=== PATIENT | male | born 1960 | race African-American/Black ===

== ENCOUNTER 2017-09-25 11:48 | Inpatient (IN) ==
[2017-09-25] MEDS ORDERED: methylPREDNISolone SOD SUC 125 MG/2 ML VIAL IV STA (12:23)
[2017-09-25] MEDS ORDERED: cefTRIAXone 1,000 MG in SODIUM CHLORIDE 0.9% 100 ML IV STA (12:23)
[2017-09-25] MEDS ORDERED: ONDANSETRON 4 MG/2 ML VIAL IV STA (12:23)
[2017-09-25] MEDS ORDERED: SODIUM CHLORIDE 0.9% 500 ML IV STA (12:23)
[2017-09-25] MEDS ORDERED: ALBUTEROL NEB SOLN 5 MG/ML 20 ML/BOTTLE RESP TX SCH (12:30)
[2017-09-25 12:38] LABS: Basophils # 0.1 10*3/uL (0.0-0.2); Basophils % 0.6 % (0.0-0.8); Hematocrit 36.8 VOL% (42.0-52.0); Hemoglobin 13.1 GM/DL (14.0-18.0); Immature Granulocytes % 1.3 %; Immature Granulocytes Absolute 0.18 #; Lymphocytes # 1.2 10*3/uL (1.4-4.0); Lymphocytes % 8.1 % (21.2-54.2); Mean Corpuscular HGB Conc 35.6 GM/DL (32-36); Mean Corpuscular Hemoglobin 34 PG (27-34); Mean Corpuscular Volume 94.6 FL (87-102); Monocytes # 1.1 10*3/uL (0.11-0.8); Monocytes % 7.6 % (1.7-12.7); Neutrophils # 11.9 10*3/uL (1.4-7.4); Neutrophils % 82.4 % (38.7-73.9); Platelet Count 245 T/CUMM (130-400); Red Blood Count 3.89 MC/CUMM (3.8-5.5); Red Cell Distribution Width 12.9 % (9.3-17.3); White Blood Count 14.4 T/CUMM (4-12)
[2017-09-25 12:47] LABS: ABG Base Excess 3.4 MMOL/L (-2.5-2.5); ABG HCO3 27.3 MMOL/L (20-26); ABG Oxygen Saturation 93.3 % (95-100); ABG PCO2 35.5 MM HG (35-48); ABG PH 7.483 (7.35-7.45); ABG PO2 65.5 MM HG (80-95); ABG TCO2 23.3 MMOL/L (23-27)
[2017-09-25] MEDS ORDERED: cefTRIAXone 1,000 MG VIAL ONE (12:48)
[2017-09-25] MEDS ORDERED: ONDANSETRON 4 MG/2 ML VIAL ONE ×2 (12:48→12:49)
[2017-09-25] MEDS ORDERED: methylPREDNISolone SOD SUC 125 MG/2 ML VIAL ONE (12:48)
[2017-09-25 12:49] LABS: INR 0.9; PT Patient Result 9.8 SECS
[2017-09-25 13:07] LABS: Band Neutrophils 5 % (0-10); Hypochromasia 2+; Lymphocytes 11 % (20-55); Platelet Estimate Adequate; Segmented Neutrophils 78 % (50-85); Total Cells Counted 100
[2017-09-25 13:13] LABS: Alanine Aminotransferase 27 U/L (16-61); Albumin 2.3 G/DL (3.4-5.0); Alkaline Phosphatase 85 U/L (45-117); Amylase 84 U/L (25-115); Aspartate Amino Transferase 30 U/L (0-37); Blood Urea Nitrogen 15 MG/DL (7-18); Calcium 8.5 MG/DL (8.5-10.1); Glucose 171 MG/DL (74-106); Osmolality,Calculated 272.2 MOS/KG (273-304); Potassium 3.1 MMOL/L (3.5-5.1); Sodium 134 MMOL/L (136-145); Total Protein 6.7 G/DL (6.4-8.3); Troponin I Only < 0.015 NG/ML (0.00-0.045)
[2017-09-25 13:18] LABS: Apearance,Urine Slightly Hazy (Clear); Bilirubin,Urine Negative (Negative); Blood, Urine Moderate mg/dL (Negative); Glucose,Urine (UA) Negative (Negative); Ketones,Urine Negative (Negative); Mucus,Urine Occasional /LPF (Occasional); Nitrite,Urine Negative (Negative); Protein,Urine 100 MG/DL; RBC,Urine <1 /HPF (0-4); Urine Color Yellow (Yellow); Urine Specific Gravity 1.013 (1.001-1.035); WBC,Urine 1 /HPF (0-6)
[2017-09-25 13:51] LABS: Barbiturates Screen,Urine Negative (Negative); Benzodiazepines Screen,Urine Negative (Negative); Cannabinoid Screen,Urine Positive (Negative); Opiate Screen,Urine Negative (Negative); Phencyclidine Screen,Urine Negative (Negative)
[2017-09-25 14:57] LABS: HIV Antigen/Antibody Result Nonreactive (Nonreactive); Hepatitis A Ab IgM Quant 0.08 Index; Hepatitis A Ab IgM Result Negative (Negative); Hepatitis B Core IgM Quant 0.19 Index; Hepatitis B Core IgM Result Negative (Negative); Hepatitis B Surface Ag Quant 0.16 Index; Hepatitis B Surface Ag Result Negative (Negative); Hepatitis C Virus Ab Quant 0.11 Index; Hepatitis C Virus Ab Result Negative (Negative)
[2017-09-25] MEDS ORDERED: SODIUM CHLORIDE 0.9% 2,400 ML IV ONE (15:38)
[2017-09-25] MEDS ORDERED: guaiFENesin/DM ER 600-30 MG TABLET PO PRN (15:40)
[2017-09-25] MEDS ORDERED: MORPHINE 4 MG/1 ML VIAL IV PRN (15:40)
[2017-09-25] MEDS ORDERED: ONDANSETRON 4 MG/2 ML VIAL IV PRN (15:40)
[2017-09-25] MEDS ORDERED: ALBUTEROL 2.5 MG/3 ML NEB RESP TX PRN (15:41)
[2017-09-25] MEDS ORDERED: CLORAZEPATE 7.5 MG TABLET PO PRN (15:43)
[2017-09-25] MEDS: LEVOFLOXACIN INJ 750 MG in PREMIX 1 EACH IV SCH (17:51)
[2017-09-25] MEDS: NICOTINE 21 MG/24 HR PATCH TRANSDERM SCH (17:51)
[2017-09-25] MEDS: ENOXAPARIN 40 MG/0.4 ML SYRINGE SUBCUT SCH (17:51)
[2017-09-25] MEDS: AZTREONAM 2,000 MG in SYRINGE 1 EACH IV SCH ×2 (17:51→23:00)
[2017-09-25] MEDS: SODIUM CHLORIDE 0.9% 1,000 ML IV SCH (17:51)
[2017-09-25] MEDS: POTASSIUM CHLORIDE 20 MEQ TABLET PO SCH ×2 (17:51→20:57)
[2017-09-25] MEDS: ALBUTEROL 2.5 MG/3 ML NEB RESP TX SCH (19:55)
[2017-09-25] MEDS: methylPREDNISolone SOD SUC 125 MG/2 ML VIAL IV SCH (20:56)
[2017-09-26] MEDS: POTASSIUM CHLORIDE 20 MEQ TABLET PO SCH (00:21)
[2017-09-26] MEDS: ALBUTEROL 2.5 MG/3 ML NEB RESP TX SCH ×4 (00:33→19:10)
[2017-09-26] MEDS: SODIUM CHLORIDE 0.9% 1,000 ML IV SCH ×5 (01:33→22:26)
[2017-09-26] MEDS: AZTREONAM 2,000 MG in SYRINGE 1 EACH IV SCH ×4 (05:20→22:27)
[2017-09-26] MEDS: methylPREDNISolone SOD SUC 125 MG/2 ML VIAL IV SCH ×4 (05:20→21:01)
[2017-09-26 06:42] LABS: Basophils % 0.2 % (0.0-0.8); Hematocrit 30.9 VOL% (42.0-52.0); Immature Granulocytes % 0.8 %; Lymphocytes # 0.8 10*3/uL (1.4-4.0); Lymphocytes % 5.8 % (21.2-54.2); Mean Corpuscular HGB Conc 35.6 GM/DL (32-36); Mean Corpuscular Hemoglobin 34 PG (27-34); Mean Corpuscular Volume 95.1 FL (87-102); Mean Platelet Volume 10.3 FL (9.6-12.0); Monocytes # 0.4 10*3/uL (0.11-0.8); Monocytes % 3.1 % (1.7-12.7); Neutrophils # 11.8 10*3/uL (1.4-7.4); Neutrophils % 90.1 % (38.7-73.9); Platelet Count 218 T/CUMM (130-400); Red Blood Count 3.25 MC/CUMM (3.8-5.5); White Blood Count 13.1 T/CUMM (4-12)
[2017-09-26 07:24] LABS: Albumin 1.9 G/DL (3.4-5.0); Bilirubin,Total 0.6 MG/DL (0.2-1.0); Calcium 8.4 MG/DL (8.5-10.1); Osmolality,Calculated 284.5 MOS/KG (273-304); Total Protein 5.9 G/DL (6.4-8.3)
[2017-09-26 07:28] LABS: Band Neutrophils 5 % (0-10); Hypochromasia 1+; Lymphocytes 5 % (20-55); Platelet Estimate Adequate; Segmented Neutrophils 85 % (50-85); Total Cells Counted 100
[2017-09-26 07:34] LABS: Basophils % 0.3 % (0.0-0.8); Eosinophils % 0.1 % (0.00-10.9); Hematocrit 31.5 VOL% (42.0-52.0); Hemoglobin 11.1 GM/DL (14.0-18.0); Immature Granulocytes % 0.9 %; Immature Granulocytes Absolute 0.12 #; Lymphocytes # 0.8 10*3/uL (1.4-4.0); Lymphocytes % 6.3 % (21.2-54.2); Mean Corpuscular HGB Conc 35.2 GM/DL (32-36); Mean Corpuscular Hemoglobin 34 PG (27-34); Mean Corpuscular Volume 95.7 FL (87-102); Mean Platelet Volume 10.8 FL (9.6-12.0); Monocytes # 0.4 10*3/uL (0.11-0.8); Monocytes % 3.3 % (1.7-12.7); Neutrophils # 11.7 10*3/uL (1.4-7.4); Neutrophils % 89.1 % (38.7-73.9); Platelet Count 225 T/CUMM (130-400); Red Blood Count 3.29 MC/CUMM (3.8-5.5); Red Cell Distribution Width 13.1 % (9.3-17.3); White Blood Count 13.2 T/CUMM (4-12)
[2017-09-26 08:01] LABS: Band Neutrophils 10 % (0-10); Hypochromasia 1+; Lymphocytes 8 % (20-55); Platelet Estimate Adequate; Polychromasia Slight; Segmented Neutrophils 79 % (50-85); Total Cells Counted 100
[2017-09-26] MEDS: NICOTINE 21 MG/24 HR PATCH TRANSDERM SCH (08:32)
[2017-09-26] MEDS: PANTOPRAZOLE 40 MG TABLET PO SCH (08:32)
[2017-09-26 08:36] LABS: Vitamin B12 795 PG/ML (211-911)
[2017-09-26 08:43] LABS: Sedimentation Rate-Westergren 115 MM/HR (0-20)
[2017-09-26] MEDS: BISACODYL 5 MG TABLET PO SCH ×2 (13:38→21:00)
[2017-09-26] MEDS: ENOXAPARIN 40 MG/0.4 ML SYRINGE SUBCUT SCH (16:21)
[2017-09-26] MEDS: LEVOFLOXACIN INJ 750 MG in PREMIX 1 EACH IV SCH (16:23)
[2017-09-26] MEDS ORDERED: POLYETHYLENE GLYCOL POWDER 255 GM BOTTLE PO ONE (18:00)
[2017-09-26] MEDS ORDERED: MAGNESIUM CITRATE 300 ML BOTTLE PO ONE (21:00)
[2017-09-27] MEDS: ALBUTEROL 2.5 MG/3 ML NEB RESP TX SCH ×4 (00:07→19:52)
[2017-09-27] MEDS: SODIUM CHLORIDE 0.9% 1,000 ML IV SCH ×3 (00:58→21:41)
[2017-09-27] MEDS: methylPREDNISolone SOD SUC 125 MG/2 ML VIAL IV SCH ×4 (05:11→21:38)
[2017-09-27] MEDS: BISACODYL 5 MG TABLET PO SCH (05:12)
[2017-09-27] MEDS: AZTREONAM 2,000 MG in SYRINGE 1 EACH IV SCH ×4 (05:15→23:30)
[2017-09-27 06:30] LABS: Basophils % 0.2 % (0.0-0.8); Hematocrit 31.1 VOL% (42.0-52.0); Hemoglobin 11.1 GM/DL (14.0-18.0); Immature Granulocytes % 1.2 %; Immature Granulocytes Absolute 0.21 #; Lymphocytes # 1.2 10*3/uL (1.4-4.0); Lymphocytes % 6.9 % (21.2-54.2); Mean Corpuscular HGB Conc 35.7 GM/DL (32-36); Mean Corpuscular Hemoglobin 34 PG (27-34); Mean Corpuscular Volume 94.2 FL (87-102); Mean Platelet Volume 10.3 FL (9.6-12.0); Monocytes # 0.7 10*3/uL (0.11-0.8); Monocytes % 4.1 % (1.7-12.7); NRBC # 0.02 10*3/uL; Neutrophils # 15.3 10*3/uL (1.4-7.4); Neutrophils % 87.6 % (38.7-73.9); Platelet Count 290 T/CUMM (130-400); White Blood Count 17.4 T/CUMM (4-12)
[2017-09-27 06:53] LABS: Calcium 8.5 MG/DL (8.5-10.1); Osmolality,Calculated 289.3 MOS/KG (273-304); Potassium 3.6 MMOL/L (3.5-5.1)
[2017-09-27 07:00] LABS: Band Neutrophils 3 % (0-10); Hypochromasia 1+; Lymphocytes 7 % (20-55); Microcytosis Slight; Platelet Estimate Normal; Segmented Neutrophils 84 % (50-85); Total Cells Counted 100
[2017-09-27] MEDS ORDERED: GLYCOPYRROLATE 0.4 MG/2 ML VIAL IM ONE (07:30)
[2017-09-27] MEDS ORDERED: MEPERIDINE 50 MG/1 ML VIAL IM ONE (07:30)
[2017-09-27] MEDS ORDERED: PROMETHAZINE 25 MG/1 ML VIAL IM ONE (07:30)
[2017-09-27] MEDS ORDERED: MIDAZOLAM 2 MG/2 ML VIAL ONE (07:45)
[2017-09-27] MEDS ORDERED: LIDOCAINE 1% 20 ML VIAL MISC INJ ONE (08:00)
[2017-09-27] MEDS ORDERED: LIDOCAINE 2% VISCOUS 100 ML BOTTLE SWISH/SPIT ONE (08:00)
[2017-09-27] MEDS ORDERED: MIDAZOLAM 2 MG/2 ML VIAL IV ONE (08:00)
[2017-09-27] MEDS ORDERED: LIDOCAINE 2% 20 ML VIAL RESP TX ONE (08:00)
[2017-09-27] MEDS ORDERED: LIDOCAINE 100 MG/5 ML SYRINGE ONE (08:43)
[2017-09-27] MEDS ORDERED: PROPOFOL 200 MG/20 ML VIAL IV ONE (08:43)
[2017-09-27] MEDS: NICOTINE 21 MG/24 HR PATCH TRANSDERM SCH (10:19)
[2017-09-27] MEDS: PANTOPRAZOLE 40 MG TABLET PO SCH (10:21)
[2017-09-27 11:00] LABS: Hemoglobin A1 (Alkaline) 58.6 % (96.5-98.5)
[2017-09-27 11:01] LABS: Hemoglobin S (Alkaline) 38.4 %
[2017-09-27] MEDS: LEVOFLOXACIN INJ 750 MG in PREMIX 1 EACH IV SCH (15:38)
[2017-09-27] MEDS: HYDROCORTISONE 25 MG SUPP RECTAL SCH (21:42)
[2017-09-28] MEDS: ALBUTEROL 2.5 MG/3 ML NEB RESP TX SCH ×4 (00:55→19:40)
[2017-09-28] MEDS: methylPREDNISolone SOD SUC 125 MG/2 ML VIAL IV SCH ×4 (04:02→22:19)
[2017-09-28] MEDS: AZTREONAM 2,000 MG in SYRINGE 1 EACH IV SCH ×4 (04:02→22:14)
[2017-09-28 05:25] LABS: Basophils % 0.2 % (0.0-0.8); Hematocrit 31.8 VOL% (42.0-52.0); Immature Granulocytes % 0.7 %; Immature Granulocytes Absolute 0.08 #; Lymphocytes % 7.9 % (21.2-54.2); Mean Corpuscular HGB Conc 34.6 GM/DL (32-36); Mean Corpuscular Hemoglobin 33 PG (27-34); Mean Corpuscular Volume 94.6 FL (87-102); Mean Platelet Volume 10.1 FL (9.6-12.0); Monocytes # 0.4 10*3/uL (0.11-0.8); Neutrophils # 10.7 10*3/uL (1.4-7.4); Neutrophils % 88.2 % (38.7-73.9); Platelet Count 331 T/CUMM (130-400); Red Blood Count 3.36 MC/CUMM (3.8-5.5); Red Cell Distribution Width 13.3 % (9.3-17.3); White Blood Count 12.2 T/CUMM (4-12)
[2017-09-28 05:52] LABS: Band Neutrophils 2 % (0-10); Giant Platelets Few; Hypochromasia 1+; Lymphocytes 4 % (20-55); Microcytosis Slight; Nucleated Red Blood Cells 1 (0-5); Platelet Estimate Adequate; Segmented Neutrophils 93 % (50-85); Total Cells Counted 100
[2017-09-28 06:02] LABS: Calcium 8.3 MG/DL (8.5-10.1); Potassium 4.2 MMOL/L (3.5-5.1)
[2017-09-28] MEDS ORDERED: ALBUTEROL 2.5 MG/3 ML NEB RESP TX STA (07:55)
[2017-09-28] MEDS ORDERED: PROPOFOL 200 MG/20 ML VIAL IV ONE (08:03)
[2017-09-28] MEDS ORDERED: LIDOCAINE 2% 5 ML VIAL ONE (08:03)
[2017-09-28] MEDS: SODIUM CHLORIDE 0.9% 1,000 ML IV SCH ×2 (09:26→13:13)
[2017-09-28] MEDS: NICOTINE 21 MG/24 HR PATCH TRANSDERM SCH (09:49)
[2017-09-28] MEDS: HYDROCORTISONE 25 MG SUPP RECTAL SCH ×2 (09:50→22:18)
[2017-09-28] MEDS: PANTOPRAZOLE 40 MG TABLET PO SCH (09:50)
[2017-09-28] MEDS: METOCLOPRAMIDE 10 MG/10 ML UDCUP PO SCH ×3 (13:13→22:19)
[2017-09-28] MEDS: LEVOFLOXACIN INJ 750 MG in PREMIX 1 EACH IV SCH (16:48)
[2017-09-29] MEDS: ALBUTEROL 2.5 MG/3 ML NEB RESP TX SCH ×3 (00:32→13:46)
[2017-09-29] MEDS: SODIUM CHLORIDE 0.9% 1,000 ML IV SCH ×3 (01:00→09:57)
[2017-09-29] MEDS: AZTREONAM 2,000 MG in SYRINGE 1 EACH IV SCH ×2 (04:38→14:28)
[2017-09-29] MEDS: methylPREDNISolone SOD SUC 125 MG/2 ML VIAL IV SCH ×2 (04:38→08:55)
[2017-09-29] MEDS: METOCLOPRAMIDE 10 MG/10 ML UDCUP PO SCH ×2 (08:54→14:28)
[2017-09-29] MEDS: NICOTINE 21 MG/24 HR PATCH TRANSDERM SCH (08:54)
[2017-09-29] MEDS: PANTOPRAZOLE 40 MG TABLET PO SCH (08:55)
[2017-09-29] MEDS: HYDROCORTISONE 25 MG SUPP RECTAL SCH (08:55)
[2017-09-29] MEDS ORDERED: methylPREDNISolone SOD SUC 40 MG/1 ML VIAL IV SCH (09:00)
[2017-09-29 12:28] VITALS: BP 139/78
== END 2017-09-29 15:46 | disposition home or self-care (01) | DRG 871 ==
LOC: N.ED 11:48 → N.EDINP 15:08 → SUATTDRO 15:08 → N.EDINP 16:10 → N.5E 16:44
PROVIDERS: ADMIT Hospitalist; ATTEND Hospitalist
PROC: BRONCHB (2017-09-27 08:05)